=== PATIENT | male | born 1970 | race Caucasian/White ===

== ENCOUNTER 2016-09-05 09:35 | Emergency (ER) | payer OTHER ==
[~2016-09-05] VITALS: Ht 175.3 cm; Wt 74.8 kg
[~2016-09-05 09:35] MED LIST: PAXIL20 MG PO
[2016-09-05] MEDS ORDERED: TOBRADEX EYE O3.5 GM OPTH (11:34)
== END 2016-09-05 12:07 | disposition home or self-care (01) ==
LOC: ED 09:35
DX: H20.12 Chronic iridocyclitis, left eye (principal); F31.9 Bipolar disorder, unspecified; Z88.8 Allergy status to other drugs, medicaments and biological substances
CPT/HCPCS: 99283